=== PATIENT | female | born 1985 | race Caucasian/White ===

== ENCOUNTER 2016-10-20 | Outpatient (CLI) | payer MEDICAID ==
[~2016-10-20] MED LIST: PREN1TAB49 PO
--- NOTE | 2016-10-20 00:39 | PN ---
Date/Time of Note Date/Time of Note DATE: 10/20/16 TIME: 00:37 OB Subjective Subjective Subjective 31 yo P4 @ 40 wks r/o labor ctx, no VB, no LOF, good FM OB Objective Objective Objective Nml VS Abdomen- gravid, n/t SVE- 1-2/long/post FHT- Cat 1 [place]- irreg ctx HEENT: WNL Cervical Dilatation: 1cm Effacement: 25% Station: -3 Accelerations: Accelerations Present Decelerations: No Decelerations Varibility: Moderate Contractions on Admission: 6-10 Minutes Apart Intensity: Mild OB Assessment/Plan Other Assessment: patient w ctx, not yet in active labor reassuring status Other plan: d/c home return when labor more active CASSI DURON MD October 20, 2016 00:39
--- NOTE | 2016-10-20 00:43 | TRIAGE ---
OB Triage Datetime Report Generated by CPN: 10/20/2016 00:43 Datetime: 10/20/2016 00:41 Stage of : OB Triage Datetime: 10/20/2016 00:17 Assessment Type: Triage Maternal Assessment Level of Consciousness: Fully Conscious Headache: Denies Blurred Vision: No Respiratory Effort: Unlabored; Regular Rhythm; Equal Expansion Nausea/Vomiting: Denies RUQ Epigastric Pain: Denies Lower Extremities Edema: Bilateral Lower Extremities Degree: 1+ Upper Extremities Edema: None Facial Edema: None Fall Risk Assessment History of Falling: (0) No Secondary Diagnosis: (0) No Ambulatory Aid: (0) Bedrest/Nurse Assist IV Therapy: (0) No Gait: (0) Normal/Bedrest/Immobile Mental Status: (0) Oriented to Own Ability Fall Score: 0 Fall Risk Score Definition: No Risk: No action required Membrane Status: Intact Datetime: 10/20/2016 00:16 EGA: 40.0 Datetime: 10/20/2016 00:15 Time of Arrival: 10/20/2016 00:00 Arrived By: Ambulatory Arrived From: Home Chief Complaint: UC'S SINCE 21:00 Movement: Present Contractions: Regular Contractions: Q4MIN Rupture of Membranes: Denies Vaginal Bleeding: Scant Vaginal Discharge: Denies Recent Sexual Intercouse: Denies Abdominal Trauma: Not Applicable Additional Patient Complaints: VAGINAL SPOTTING Time Provider Notified: 10/20/2016 00:30 Provider Notified: DURON Initial Plan: EFM,SVE, CALL OB Datetime: 10/20/2016 00:12 Vaginal Exam Dilatation (cms): 1.5 Effacement (%): 50 Station: -1 Exam By: HERMILA BA Vaginal Bleeding: None Cervix, Consistency: Moderate Cervix, Position: Posterior Presentation 'A': Breech
== END 2016-10-20 00:45 | disposition home or self-care (01) ==
LOC: OBT → L-D → OBT 00:45
PROVIDERS: ATTEND Obstetrics & Gynecology
DX: O26.893 Other specified pregnancy related conditions, third trimester (principal); Z3A.40 40 weeks gestation of pregnancy
CPT/HCPCS: G0463

== ENCOUNTER 2016-10-20 15:36 | Inpatient (IN) | payer MEDICAID ==
[~2016-10-20] VITALS: Ht 167.6 cm; Wt 85.3 kg
[2016-10-20 16:18] VITALS: Ht 167.6 cm; Wt 85.3 kg
[2016-10-20] MEDS ORDERED: MISOPROSTOL 200 MCG TAB PR PRN (16:30)
[2016-10-20] MEDS ORDERED: CARBOPROST 250 MCG INJ IM PRN (16:30)
[2016-10-20] MEDS ORDERED: LACTATED RINGER'S 1,000 ML IV PRN (16:30)
[2016-10-20] MEDS ORDERED: METHYLERGONOVINE 0.2 MG INJ IM PRN (16:30)
[2016-10-20] MEDS ORDERED: OXYTOCIN 30 UNITS/LR 500 ML IV SCH ×2 (16:30)
[2016-10-20] MEDS ORDERED: IBUPROFEN 600 MG TAB PO PRN (16:30)
[2016-10-20] MEDS ORDERED: OXYTOCIN 30 UNITS/LR 500 ML IV PRN (16:30)
[2016-10-20] MEDS ORDERED: LIDOCAINE 1% (MPF) 30 ML INJ INJ PRN (16:30)
[2016-10-20] MEDS ORDERED: BUTORPHANOL 2 MG INJ IV PRN (16:30)
[2016-10-20] MEDS: LACTATED RINGER'S 1,000 ML IV SCH ×2 (17:03→20:07)
[2016-10-20 17:11] LABS: ADD SCAN DIFF NO
[2016-10-20 17:16] LABS: BASOPHILS % 0.2 % (0.0-2.0); EOSINOPHILS % 0.4 % (0.0-7.0); HEMATOCRIT 38.2 % (37.0-47.0); LYMPHOCYTES # 2.2 10^3/ul (0.8-2.9); LYMPHOCYTES % 24.2 % (15.0-51.0); MEAN CORPUSCULAR HEMOGLOBIN 30.7 pg (29.0-33.0); MEAN CORPUSCULAR VOLUME 90.3 fl (82.0-101.0); MONOCYTE # 0.7 10^3/ul (0.3-0.9); NEUTROPHILS % 66.9 % (39.0-77.0); PLATELET COUNT 185 10^3/UL (140-415); RED BLOOD COUNT 4.23 10^6/ul (4.20-5.40); RED CELL DISTRIBUTION WIDTH 13.4 % (11.5-14.5)
[2016-10-20 17:34] LABS: INR 0.91; PROTIME 12.2 Sec (12.2-14.2)
[2016-10-20 17:35] LABS: PARTIAL THROMBOPLASTIN TIME 32.8 Sec (25.0-35.0)
[2016-10-20] MEDS ORDERED: ONDANSETRON 4 MG INJ IV PRN (20:00)
[2016-10-20] MEDS ORDERED: EPHEDrine SULFATE 50 MG/5 ML SYG IV PRN (20:00)
[2016-10-20] MEDS ORDERED: FENTAnyl 2MCG/ML-ROPIV 0.2% 100 ML BAG EPI SCH (20:00)
[2016-10-20] MEDS ORDERED: NALOXONE (0.4 MG/ML) INJ IV PRN (20:00)
--- NOTE | 2016-10-20 23:42 | LDN ---
Date/Time of Note Date/Time of Note DATE: 10/20/16 TIME: 23:40 Delivery Summary Weeks of Gestation 39+ Assisted Vaginal Delivery: Vacuum (3 attempts ,Prolonged bradycardia down to 50s ,no recovery) Placenta Delivered: Spontaneously Episiotomy: No Perineal laceration: 2 Anesthesia type: Epidural Estimated blood loss: 200 Sponge & Needle done & correct: Yes All needle counts correct: Yes Any foreign bodies felt in the: No Problems: Infant Delivery Information Sex Sex: male Apgars 1 Minute: 7 5 Minute: 9 Suctioning Nose & mouth suctioned at alex: Yes Delee suction performed: Yes Umbilical Cord Umbilical cord with: 3 Vessels Cord presentations: nuchal cord (x1 tight) Nuchal cord present X: 1 Cord Blood was obtained: Yes Mother & Baby Disposition Disposition Mom & Baby to Maternity; Good: Yes Baby to NICU: No CORTEZ BOYCE M.D. October 20, 2016 23:42
--- NOTE | 2016-10-20 23:43 | HP ---
Date/Time of Note Date/Time of Note DATE: 10/20/16 TIME: 23:42 OB - History Hx of Present Free Text/Dictation @39+wks Labor : 5 Para: 4 Care: Good Care Ultrasounds: Normal mid trimester US Obstetrical Complications: None Medical Complications: None Past Family/Social History * Past Medical, Surgical, Family and Obstetric Histories reviewed from chart. OB Admission Exam Physical Exam Abdomen: WNL Cervical Dilatation: 10cm Effacement: 100% Station: -1 Membranes: Ruptured Amniotic Fluid: Clear Heart Rate: 140's Accelerations: Accelerations Present Decelerations: No Decelerations Varibility: Moderate Contractions on Admission: < 5 Minutes Apart Last 72 hours Lab Results CBC & BMP 10/20/16 16:50 OB Assessment/Plan Reason for admission: observation Plan: Expectant Management Other plan: Anticipated CORTEZ BOYCE M.D. October 20, 2016 23:43
[2016-10-21 02:00] VITALS: BP 120/70; PULSE 76; RESP 19
[2016-10-21] MEDS ORDERED: ZOLPIDEM 5 MG TAB PO PRN (02:30)
[2016-10-21] MEDS ORDERED: METHYLERGONOVINE 0.2 MG INJ IM PRN (02:30)
[2016-10-21] MEDS ORDERED: SENNA/DOCUSATE NA (8.6MG/50MG) TAB PO PRN (02:30)
[2016-10-21] MEDS ORDERED: OXYTOCIN 30 UNITS/LR 500 ML IV PRN (02:30)
[2016-10-21] MEDS ORDERED: CARBOPROST 250 MCG INJ IM PRN (02:30)
[2016-10-21] MEDS ORDERED: LANOLIN 7 GM TUBE TOP PRN (02:30)
[2016-10-21] MEDS ORDERED: OXYCODONE/ASPIRIN (4.88/325) TAB PO PRN (02:30)
[2016-10-21] MEDS ORDERED: MISOPROSTOL 200 MCG TAB PR PRN (02:30)
[2016-10-21 03:00] VITALS: BP 123/72; PULSE 80; RESP 19
[2016-10-21] MEDS: LACTATED RINGER'S 1,000 ML IV* SCH ×3 (04:56→18:04)
[2016-10-21] MEDS: IBUPROFEN 600 MG TAB PO SCH ×3 (06:00→18:07)
[2016-10-21 07:58] LABS: ADD SCAN DIFF NO
[2016-10-21 08:02] LABS: BASOPHILS % 0.1 % (0.0-2.0); EOSINOPHILS % 0.2 % (0.0-7.0); HEMATOCRIT 37.9 % (37.0-47.0); HEMOGLOBIN 13.2 g/dl (12.0-16.0); LYMPHOCYTES # 2.2 10^3/ul (0.8-2.9); LYMPHOCYTES % 16.3 % (15.0-51.0); MEAN CORPUSCULAR HEMOGLOBIN 31.3 pg (29.0-33.0); MEAN CORPUSCULAR HGB CONC 34.8 g/dl (32.0-37.0); MEAN CORPUSCULAR VOLUME 89.8 fl (82.0-101.0); MEAN PLATELET VOLUME 12.2 fl (7.4-10.4); MONOCYTE # 1.1 10^3/ul (0.3-0.9); NEUTROPHIL # 10.2 10^3/ul (1.6-7.5); PLATELET COUNT 169 10^3/UL (140-415); RED BLOOD COUNT 4.22 10^6/ul (4.20-5.40); RED CELL DISTRIBUTION WIDTH 13.1 % (11.5-14.5); WHITE BLOOD COUNT 13.6 10^3/ul (4.8-10.8)
[2016-10-21 08:10] VITALS: BP 109/74; PULSE 72; RESP 20
[2016-10-21] MEDS: SENNA/DOCUSATE NA (8.6MG/50MG) TAB PO SCH (09:33)
[2016-10-21] MEDS: MAGNESIUM HYDROXIDE 30ML CUP PO SCH (09:33)
--- NOTE | 2016-10-21 12:10 | PN ---
Date/Time of Note Date/Time of Note DATE: 10/21/16 TIME: 12:07 OB Subjective Subjective Subjective day1 Afebrile vital signs are stable abdomen soft uterus firm lochia moderate extremity normal Laboratory Tests Test 10/20/16 16:50 10/21/16 07:15 White Blood Count 9.010^3/ul 13.610^3/ul Red Blood Count 4.2310^6/ul 4.2210^6/ul Hemoglobin 13.0g/dl 13.2g/dl Hematocrit 38.2% 37.9% Mean Corpuscular Volume 90.3fl 89.8fl Mean Corpuscular Hemoglobin 30.7pg 31.3pg Mean Corpuscular Hemoglobin Concent 34.0g/dl 34.8g/dl Red Cell Distribution Width 13.4% 13.1% Platelet Count 53545^3/UL 08691^3/UL Mean Platelet Volume 12.0fl 12.2fl Neutrophils % 66.9% 75.0% Lymphocytes % 24.2% 16.3% Monocytes % 8.0% 8.0% Eosinophils % 0.4% 0.2% Basophils % 0.2% 0.1% Nucleated Red Blood Cells % 0.0/100WBC 0.0/100WBC Neutrophils # 6.010^3/ul 10.210^3/ul Lymphocytes # 2.210^3/ul 2.210^3/ul Monocytes # 0.710^3/ul 1.110^3/ul Eosinophils # 0.010^3/ul 0.010^3/ul Basophils # 0.010^3/ul 0.010^3/ul Nucleated Red Blood Cells # 0.010^3/ul 0.010^3/ul Prothrombin Time 12.2Sec Prothrombin Time Ratio 1.0 INR International Normalized Ratio 0.91 Activated Partial Thromboplast Time 32.8Sec Current Medications Medications (Trade) Dose Ordered Sig/Armin Route PRN Reason Start Time Stop Time Status Last Admin Dose Admin Lactated Ringer's 1,000 ml @ 125 mls/hr Q8H IV 10/20/16 16:19 10/21/16 02:29 DC 10/20/16 20:07 Oxytocin/Lactated Ringer's 500 ml @ 0 mls/hr TITRATE IV 10/20/16 16:30 10/21/16 02:29 DC 10/20/16 23:35 Butorphanol Tartrate (Stadol) 2 mg Q2H PRN IV PAIN 10/20/16 16:30 10/21/16 02:29 DC 10/20/16 17:04 Lidocaine 30 ml 30 ml ONCE PRN INJ EPISIOTOMY/TEARING 10/20/16 16:30 10/21/16 02:29 DC Oxytocin/Lactated Ringer's 500 ml @ 125 mls/hr ONCE -MAY REPEAT X1 IV 10/20/16 16:30 10/21/16 02:29 DC 10/21/16 01:23 Ibuprofen 600 mg 600 mg ONCE PRN PO Mild Pain (Pain Score 1-3) 10/20/16 16:30 10/21/16 02:29 DC Lactated Ringer's 1,000 ml @ 2,000 mls/hr Q30M PRN IV PRE-EPIDURAL BOLUS 10/20/16 16:30 10/21/16 02:29 DC Oxytocin/Lactated Ringer's 500 ml @ 0 mls/hr ONCE PRN IV For Hemorrhage Management 10/20/16 16:30 10/21/16 02:29 DC Methylergonovine Maleate (Methergine) 0.2 mg ONCE PRN IM VAGINAL BLEEDING 10/20/16 16:30 10/21/16 02:29 DC Carboprost Tromethamine (Hemabate) 250 mcg ONCE PRN IM VAGINAL BLEEDING 10/20/16 16:30 10/21/16 02:29 DC Misoprostol (Cytotec) 1,000 mcg ONCE PRN NV VAGINAL BLEEDING 10/20/16 16:30 10/21/16 02:30 DC Naloxone HCl (Narcan) 0.1 mg Q2M PRN IV FOR RESP RATE 8 OR LESS 10/20/16 20:00 10/21/16 02:29 DC Ondansetron HCl (Zofran Inj) 4 mg Q6H PRN IV NAUSEA AND/OR VOMITING 10/20/16 20:00 10/21/16 02:29 DC Fentanyl/ Ropivacaine 100 ml EPIDURAL INFUSION EPI 10/20/16 20:00 10/21/16 02:29 DC Ephedrine Sulfate 5 mg 5 mg PRN PRN IV BLOOD PRESSURE SUPPORT 10/20/16 20:00 10/21/16 02:30 DC Lactated Ringer's (Lr) 1,000 ml @ 125 mls/hr Q8H IV* 10/21/16 02:04 10/21/16 04:56 Ibuprofen (Motrin) 600 mg Q6 PO 10/21/16 06:00 10/21/16 06:00 Oxycodone/Aspirin (Percodan) 2 tab Q3H PRN PO PAIN LEVEL 6-10 10/21/16 02:30 10/21/16 09:33 Zolpidem Tartrate (Ambien) 5 mg QHS PRN PO INSOMNIA 10/21/16 02:30 Senna/Docusate Sodium (Senokot-S) 1 tab BID PO 10/21/16 09:00 10/21/16 09:33 Senna/Docusate Sodium (Senokot-S) 1 tab BID PRN PO CONSTIPATION 10/21/16 02:30 Magnesium Hydroxide (Milk Of Mag) 30 ml Q12 PO 10/21/16 09:00 10/21/16 09:33 Lanolin (Teg-O-Asuagv) 1 applic BEDSIDE MEDICATION PRN TOP BEDSIDE FOR JENNIFER TO NIPPLES 10/21/16 02:30 10/21/16 06:00 Diphtheria/ Tetanus/Acell Pertussis 0.5 ml 0.5 ml ONCE ONCE IM* 10/22/16 09:00 10/22/16 09:01 Oxytocin/Lactated Ringer's 500 ml @ 0 mls/hr ONCE PRN IV For Hemorrhage Management 10/21/16 02:30 Methylergonovine Maleate (Methergine) 0.2 mg ONCE PRN IM VAGINAL BLEEDING 10/21/16 02:30 Carboprost Tromethamine (Hemabate) 250 mcg ONCE PRN IM VAGINAL BLEEDING 10/21/16 02:30 Misoprostol (Cytotec) 1,000 mcg ONCE PRN NV VAGINAL BLEEDING 10/21/16 02:30 CORNELIO LANDIS MD October 21, 2016 12:10
[2016-10-21 17:54] VITALS: BP 123/66; PULSE 80; RESP 20
[2016-10-21 20:00] VITALS: BP 98/55; PULSE 55; RESP 18
[2016-10-22] MEDS: SENNA/DOCUSATE NA (8.6MG/50MG) TAB PO SCH ×2 (01:08→09:45)
[2016-10-22] MEDS: MAGNESIUM HYDROXIDE 30ML CUP PO SCH ×2 (01:08→09:45)
[2016-10-22] MEDS: IBUPROFEN 600 MG TAB PO SCH ×2 (01:11→06:00)
[2016-10-22] MEDS: LACTATED RINGER'S 1,000 ML IV* SCH (02:04)
[2016-10-22 07:49] VITALS: BP 113/92; PULSE 65; RESP 20
[2016-10-22] MEDS ORDERED: DIPHTH/TET/ACEL PERTUSS (ADULT) 0.5 ML VIAL IM* ONE (09:00)
--- NOTE | 2016-10-22 10:01 | PD.PPDC ---
[employer] Discharge Instruction Condition Patient Condition: Good Diet Diet: Resume Regular Diet Activity/Restrictions Activity: Normal Activity May Shower Restrictions: No Exercising No Lifting No Driving No Sexual Activity Nothing in the Vagina No Elfrida No Tampons, douche Wound/Drain Care Instructions Wound/Drain Care Instructions: Wash with soap and water Keep clean and dry Follow-up Follow-up with Physician: 2, Week/Weeks Provider Information: Appointment clinic in 2 weeks for check Return to clinic for MANAGER [employer] Instructions: Fever greater than 101 Worsening abdominal pain Excessive Vaginal Bleeding More than 2 pads per hour Unable to tolerate diet OB Instructions: Breast Tenderness Depression Blurried Vision Headache Surgical Instructions: Incisional Redness CORNELIO LANDIS MD October 22, 2016 10:01
--- NOTE | 2016-10-22 10:03 | DS ---
Date/Time of Note Date/Time of Note DATE: 10/22/16 TIME: 10:02 Discharge Summary Admission/Discharge Info Admit Date/Time October 20, 2016 at 16:40 Discharge Date/Time October 22, 2016 at 10 AM Final Diagnosis Term normal delivery Patient Condition: Good Procedures Normal spontaneous vaginal delivery Hx of Present Illness Term labor Hospital Course Satisfactory uneventful Home Meds Reported Medications Vits W-Ca,Fe,Fa(<1MG) () 1 Tab Tablet, 1 TAB PO DAILY 06/12/12 Discontinued Reported Medications [None] No Conflict Check 01/05/10 Follow-up Plan instructions given appointment in 2 weeks CORNELIO LANDIS MD October 22, 2016 10:03
== END 2016-10-22 13:06 | disposition home or self-care (01) | DRG 775 ==
LOC: L-D 15:36 → OBT 15:36 → L-D 16:40 → OBT 16:40 → PP1 10-21 01:31
PROVIDERS: ADMIT Obstetrics & Gynecology; ATTEND Obstetrics & Gynecology
PROC: 10E0XZZ Delivery of Products of Conception, External Approach (ICD-10-PCS; principal; 2016-10-20)
DX: O69.81X0 Labor and delivery complicated by cord around neck, without compression, not applicable or unspecified (principal); Z37.0 Single live birth; Z3A.39 39 weeks gestation of pregnancy
CPT/HCPCS: 85025; 85610; 85730; 86592; 86850; 86870; 86885; 86900; 86901; 90715; 99464; G0463; J2590; J2790; J3010; J7120